=== PATIENT | female | born 1995 | race Caucasian/White ===

== ENCOUNTER 2020-05-26 14:39 | Outpatient (CLI) | payer OTHER | END 2020-05-26 14:48 | disposition home or self-care (01) | LOC: SONOGRAMA 14:39 | PROVIDERS: ATTEND Internal Medicine | DX: E04.1 Nontoxic single thyroid nodule (principal) ==

== ENCOUNTER 2020-11-17 08:07 | Emergency (ER) | payer OTHER ==
[~2020-11-17] VITALS: Ht 154.9 cm; Wt 59.0 kg
[2020-11-17] MEDS ORDERED: PEPCID AC20 MG PO (16:05)
[2020-11-17] MEDS ORDERED: INTESTINEX680 M1 PO (16:05)
[2020-11-17] MEDS ORDERED: LEVSIN/SL0.125 MG PO (16:05)
[2020-11-17] MEDS ORDERED: DIPHENOXYLATE-1 EACH PO (16:05)
== END 2020-11-17 16:40 ==
LOC: ER 08:07
DX: A08.39 Other viral enteritis (principal); E86.0 Dehydration; Z03.818 Encounter for observation for suspected exposure to other biological agents ruled out

== ENCOUNTER 2023-05-12 16:27 | Emergency (ER) | payer OTHER ==
[~2023-05-12] VITALS: Ht 154.9 cm; Wt 59.0 kg
[~2023-05-12 16:27] MED LIST: DIPHENOXYLATE-1 EACH PO; INTESTINEX680 M1 PO; LEVSIN/SL0.125 MG PO; PEPCID AC20 MG PO
[2023-05-12] MEDS ORDERED: ACETAMINOPHEN 500 MG GEL..CAP PO ONE (19:45)
[2023-05-12 20:00] LABS: HEMATOCRIT 38.8 % (36.0-45.00); HEMOGLOBIN 12.9 g/dL (12.0-15.00); MEAN CELL VOLUME 86.6 fL (80.00-100.00); MEAN CORPUSCULAR HEMOGLOBIN 28.9 pg (27.00-32.0); MEAN CORPUSCULAR HGB CONC 33.4 g/dl (32.0-36.0); PLATELET COUNT 258 K/uL (150-450); RED BLOOD COUNT 4.48 M/uL (4.00-6.00); RED CELL DISTRIBUTION WIDTH 14.1 % (11.5-14.5)
[2023-05-12 20:21] LABS: INR 0.98; PARTIAL THROMBOPLASTIN TIME 27.9 SECONDS (22.0-34.0); PROTHROMBIN TIME 10.3 SECONDS (9.0-11.5)
[2023-05-12 20:52] LABS: PH,URINE 5.5 (5.0-8.0); URINE APPEARANCE Clear; URINE BILIRRUBIN Negative (NEGATIVE); URINE BLOOD Large; URINE COLOR Yellow; URINE GLUCOSE Negative (NEGATIVE); URINE LEUKOCYTE Negative; URINE NITRATE Negative; URINE PROTEIN Negative (NEGATIVE); URINE UROBILINOGEN 0.2 E.U./dl
[2023-05-12 20:55] LABS: URINE BACTERIA 17.6 uL (0.0-1933); URINE RBC 4.3 uL (0.0-20.8)
[2023-05-12 21:00] LABS: URINE WBC 0.7 uL (0.0-23.2)
== END 2023-05-12 22:27 | disposition home or self-care (01) ==
LOC: ER 16:28
PROVIDERS: Nurse Practitioner Family
DX: N93.8 Other specified abnormal uterine and vaginal bleeding (principal); Z88.6 Allergy status to analgesic agent; N83.292 Other ovarian cyst, left side

== ENCOUNTER 2023-05-13 15:15 | Outpatient (CLI) | payer OTHER ==
[2023-05-13 16:54] LABS: HEMATOCRIT 36.2 % (36.0-45.00); HEMOGLOBIN 12.3 g/dL (12.0-15.00); MEAN CELL VOLUME 86.5 fL (80.00-100.00); MEAN CORPUSCULAR HEMOGLOBIN 29.4 pg (27.00-32.0); PLATELET COUNT 222 K/uL (150-450); RED BLOOD COUNT 4.18 M/uL (4.00-6.00); RED CELL DISTRIBUTION WIDTH 13.7 % (11.5-14.5)
== END 2023-05-13 15:24 | disposition home or self-care (01) ==
LOC: LAB 15:15
PROVIDERS: ATTEND General Practice
DX: R50.9 Fever, unspecified (principal)